=== PATIENT | female | born 1975 | race Caucasian/White ===

== ENCOUNTER → 2020-04-02 08:35 | Outpatient (CLI) | payer BC, SELFPAY ==
--- NOTE | ~2020-04-02 | MR_ITS ---
EXAMINATION: MR cervical spine wo con DATE: 04/02/2020 09:41 INDICATION: Cervical radiculopathy. TECHNIQUE: Magnetic resonance imaging (MRI) of the cervical spine was performed without intravenous c ontrast. Sequences included sagittal T2-weighted FSE, sagittal STIR FSE, sagittal T1-weighted FSE, ax ial MERGE, and axial T2-weighted FSE. COMPARISON: None FINDINGS: There is 2 mm retrolisthesis of C5 on C6. There is kyphosis of cervical spine. Vertebral jazlyn dy heights are normal. There is severely decreased disc height at C5-C6 with endplate remodeling. The spinal cord signal intensity is normal. The following disc levels are specifically discussed: C2-C3: The disc does not extend beyond the endplate margin. There is no uncovertebral joint osteoarth ritis. There is mild bilateral facet joint osteoarthritis. There is no neural foraminal stenosis. The re is no central canal stenosis. C3-C4: The disc does not extend beyond the endplate margin. There is mild bilateral uncovertebral j luis nt osteoarthritis. There is moderate right and mild left facet joint osteoarthritis. There is no neur al foraminal stenosis. There is no central canal stenosis. C4-C5: The disc does not extend beyond the endplate margin. There is mild left uncovertebral joint os teoarthritis. There is moderate left facet joint osteoarthritis. There is no neural foraminal stenosi s. There is no central canal stenosis. C5-C6: The disc is bulging and has an annular fissure. There is severe bilateral uncovertebral joint osteoarthritis. There is no facet joint osteoarthritis. There is mild bilateral neural foraminal sten osis. There is mild central canal stenosis. C6-C7: The disc does not extend beyond the endplate margin. There is no uncovertebral joint osteoarth ritis. There is no facet joint osteoarthritis. There is no neural foraminal stenosis. There is no lencho tral canal stenosis. C7-T1: The disc does not extend beyond the endplate margin. There is no uncovertebral joint osteoarth ritis. There is mild bilateral facet joint osteoarthritis. There is no neural foraminal stenosis. The re is no central canal stenosis. IMPRESSION: 1. Severe spondylosis at C5-C6. Reviewed, dictated and finalized at location A.
== END ==
PROVIDERS: PCP Internal Medicine; Visit Provider Chiropractor
DX: M54.13 Radiculopathy, cervicothoracic region (principal); M47.892 Other spondylosis, cervical region
CPT/HCPCS: 72141

== ENCOUNTER → 2020-09-30 14:57 | Outpatient (CLI) | payer BC, SELFPAY ==
--- NOTE | ~2020-09-30 | MM_ITS ---
EXAMINATION: MM screening bipin BI w alton HISTORY: Screening mammogram TECHNIQUE: Craniocaudal and mediolateral oblique 3-D tomosynthesis images were obtained and synthetic 2-D images were generated. Bilateral rotated lateral CC views. CAD analysis was submitted and interp reted. COMPARISON: No prior mammogram is available for comparison at this institution. BREAST PARENCHYMAL COMPOSITION: The breasts are heterogeneously dense, which may obscure small masses . FINDINGS: There is no evidence of suspicious mass, calcification, or architectural distortion to sugg est malignancy in either breast. There has been no suspicious interval change. IMPRESSION: 1. No mammographic evidence of malignancy. 2. Recommend routine screening mammography in one year. BI-RADS Category 1: Negative Reviewed, dictated and finalized at location A.
== END ==
PROVIDERS: Visit Provider Nurse Practitioner Obstetrics & Gynecology
DX: Z12.31 Encounter for screening mammogram for malignant neoplasm of breast (principal)
CPT/HCPCS: 77063; 77067

== ENCOUNTER → 2021-04-25 08:16 | Outpatient (CLI) | payer BC, SELFPAY ==
--- NOTE | ~2021-04-25 | CT_ITS ---
EXAMINATION: CT soft tissue neck w con DATE: 04/25/2021 08:51 INDICATION: Right neck lump with pain. TECHNIQUE: Computed tomography (CT) of the neck was performed with 75 mL Omnipaque-350 intravenous co ntrast. Automated exposure control and iterative reconstruction technique were employed. The dose-courtney gth product was 304.14 mGy-cm. COMPARISON: Cervical spine MRI 04/02/2020 FINDINGS: There is mild scarring at the lung apices. A skin marker overlies the right sternocleidomas toid muscle. There is no abnormal mass in this area. There are no pathologically enlarged lymph nodes . There is no significant stenosis of the vertebral arteries. The cervical carotid arteries are elisa l. The paranasal sinuses are clear. The mastoid air cells are normal. There is severe degenerative di sc disease at C5-C6. IMPRESSION: 1. No abnormal mass or lymphadenopathy. Reviewed, dictated and finalized at location B. LOPER SUPPORT ENGINEER
== END ==
PROVIDERS: PCP Internal Medicine; Visit Provider Internal Medicine
DX: M79.89 Other specified soft tissue disorders (principal)
CPT/HCPCS: 70491; Q9967

== ENCOUNTER → 2021-11-24 07:51 | Outpatient (CLI) | payer BC, SELFPAY ==
--- NOTE | ~2021-11-24 | US_ITS ---
US right upper quadrant DATE: 11/24/2021 08:23 INDICATION: Epigastric abdominal pain for 2 weeks. Reflux, indigestion. Cramping and bloating. TECHNIQUE: Real-time imaging and Doppler analysis with attenuation of liver, pancreas, gallbladder COMPARISON: None FINDINGS: No hepatic or pancreatic space-occupying mass lesion is detected. Normal hepatopedal portal venous flow direction. No gallbladder wall thickening or gallstones. Negative sonographic Joy's s ign. The common bile duct measures 3 mm, normal. IMPRESSION: Normal examination Reviewed, dictated and finalized at Location A. Reviewed, dictated and finalized at location A. IMPRESSION: Normal examination
== END ==
PROVIDERS: PCP Registered Nurse; Visit Provider Registered Nurse
DX: R10.13 Epigastric pain (principal)
CPT/HCPCS: 76705

== ENCOUNTER → 2021-11-24 07:52 | Outpatient (CLI) | payer BC, SELFPAY ==
--- NOTE | ~2021-11-24 | XR_ITS ---
XR shoulder RT min 2V DATE: 11/24/2021 08:23 INDICATION: Right shoulder pain. Osteoarthritis. TECHNIQUE: 4 views COMPARISON: None FINDINGS: No fracture or dislocation, periosteal reaction or bone destruction or abnormal soft tissue calcification. Normal alignment and preservation of joint spaces at the acromioclavicular and glenoh umeral joints. IMPRESSION: Negative Reviewed, dictated and finalized at location A. IMPRESSION: Negative
== END ==
PROVIDERS: PCP Registered Nurse
DX: M19.011 Primary osteoarthritis, right shoulder (principal)
CPT/HCPCS: 73030

== ENCOUNTER → 2022-02-11 07:50 | Outpatient (CLI) | payer BC, SELFPAY ==
--- NOTE | ~2022-02-11 | MM_ITS ---
EXAMINATION: MM screening bipin BI w alton HISTORY: Screening mammogram TECHNIQUE: Craniocaudal and mediolateral oblique 3-D tomosynthesis images were obtained and synthetic 2-D images were generated. CAD analysis was submitted and interpreted. COMPARISON: 09/30/2020, 01/14/2018 bilateral screening mammogram examinations BREAST PARENCHYMAL COMPOSITION: The breasts are heterogeneously dense, which may obscure small masses ................................. FINDINGS: There is no evidence of suspicious mass, calcification, or architectural distortion to sugg est malignancy in either breast. There has been no suspicious interval change. IMPRESSION: 1. No mammographic evidence of malignancy. 2. Recommend routine screening mammography in one year. BI-RADS Category 1: Negative Reviewed, dictated and finalized at location A.
== END ==
PROVIDERS: PCP Internal Medicine; Visit Provider Nurse Practitioner Obstetrics & Gynecology
DX: Z12.31 Encounter for screening mammogram for malignant neoplasm of breast (principal)
CPT/HCPCS: 77063; 77067

== ENCOUNTER 2022-07-14 07:30 | Outpatient (CLI) | payer BC, SELFPAY ==
--- NOTE | ~2022-07-14 | XR_ITS ---
EXAMINATION: XR knee RT 2V DATE: 07/14/2022 08:34 INDICATION: Multiple joint pain. TECHNIQUE: 2 views of right knee standing were obtained. COMPARISON: None. FINDINGS: Bone alignment is normal. No fracture. Joint spaces are well maintained. There is no knee j oint effusion. IMPRESSION: 1. Normal right knee. Reviewed, dictated and finalized at location A. IMEDIA AUTHORING SPECIALIST IMPRESSION: 1. Normal right knee.
--- NOTE | ~2022-07-14 | XR_ITS ---
EXAMINATION: XR hand LT 2V DATE: 07/14/2022 08:33 INDICATION: Multiple joint pain. TECHNIQUE: 2 views of left hand were obtained. COMPARISON: None. FINDINGS: Bone alignment is normal. No fracture. Joint spaces are well maintained. IMPRESSION: 1. Normal left hand. Reviewed, dictated and finalized at location A. HAUL CHAIN FEEDER IMPRESSION: 1. Normal left hand.
--- NOTE | ~2022-07-14 | XR_ITS ---
EXAMINATION: XR hip LT min 2V DATE: 07/14/2022 08:33 INDICATION: Multiple joint pain. TECHNIQUE: 2 views of left hip were obtained. COMPARISON: Pelvis and hip radiographs 12/05/2013 FINDINGS: Bone alignment is normal. No fracture. Left hip joint space is normal. There is an intraute rine device in expected position. IMPRESSION: 1. Normal left hip. Reviewed, dictated and finalized at location A. S BREAKER IMPRESSION: 1. Normal left hip.
--- NOTE | ~2022-07-14 | XR_ITS ---
EXAMINATION: XR foot LT 2V INDICATION: Multiple joint pain TECHNIQUE: Two views of the left foot are obtained. COMPARISON: None available FINDINGS: No fracture, dislocation, or subluxation. There is mild osteoarthritis of multiple interpha langeal joints. IMPRESSION: 1. No acute osseous abnormality. Reviewed, dictated and finalized at location B. H DESIGNER
--- NOTE | ~2022-07-14 | XR_ITS ---
EXAMINATION: XR ankle RT 2V INDICATION: Multiple joint pain TECHNIQUE: Two views of the right ankle are obtained. COMPARISON: None available FINDINGS: No fracture, dislocation, or subluxation. The bones, soft tissues, and joint spaces are nor mal. IMPRESSION: 1. No acute osseous abnormality. Reviewed, dictated and finalized at location B. A DEVELOPER
--- NOTE | ~2022-07-14 | XR_ITS ---
EXAMINATION: XR knee LT 2V DATE: 07/14/2022 08:34 INDICATION: Multiple joint pain. TECHNIQUE: 2 views of left knee standing were obtained. COMPARISON: None. FINDINGS: Bone alignment is normal. No fracture. Joint spaces are well maintained. There is no knee j oint effusion. IMPRESSION: 1. Normal left knee. Reviewed, dictated and finalized at location A. TRONIC SECURITY SPECIALIST IMPRESSION: 1. Normal left knee.
--- NOTE | ~2022-07-14 | XR_ITS ---
EXAMINATION: XR wrist RT 2V DATE: 07/14/2022 08:34 INDICATION: Multiple joint pain. TECHNIQUE: 2 views of right wrist were obtained. COMPARISON: None. FINDINGS: Bone alignment is normal. No fracture. There is mild osteoarthritis of first carpometacarpa l joint. IMPRESSION: 1. Mild osteoarthritis of first carpometacarpal joint. Reviewed, dictated and finalized at location A. RENCE SERVICES HEAD
--- NOTE | ~2022-07-14 | XR_ITS ---
EXAMINATION: XR hip RT min 2V DATE: 07/14/2022 08:33 INDICATION: Multiple joint pain. TECHNIQUE: 2 views of right hip were obtained. COMPARISON: Pelvis and hip radiographs 12/05/2013 FINDINGS: Bone alignment is normal. No fracture. Right hip joint space is normal. There is an intraut erine device in expected position. IMPRESSION: 1. Normal right hip. Reviewed, dictated and finalized at location A. L POURER IMPRESSION: 1. Normal right hip.
--- NOTE | ~2022-07-14 | XR_ITS ---
EXAMINATION: XR shoulder LT min 2V DATE: 07/14/2022 08:33 INDICATION: Multiple joint pain. TECHNIQUE: 4 views of left shoulder were obtained. COMPARISON: None. FINDINGS: Bone alignment is normal. No fracture. Joint spaces are well maintained. IMPRESSION: 1. Normal left shoulder. Reviewed, dictated and finalized at location A. SPORT ANALYST IMPRESSION: 1. Normal left shoulder.
--- NOTE | ~2022-07-14 | XR_ITS ---
EXAMINATION: XR wrist LT 2V DATE: 07/14/2022 08:34 INDICATION: Multiple joint pain. TECHNIQUE: 2 views of left wrist were obtained. COMPARISON: None. FINDINGS: Bone alignment is normal. No fracture. Joint spaces are well maintained. IMPRESSION: 1. Normal left wrist. Reviewed, dictated and finalized at location A. M FITTER HELPER IMPRESSION: 1. Normal left wrist.
--- NOTE | ~2022-07-14 | XR_ITS ---
EXAMINATION: XR elbow LT 2V DATE: 07/14/2022 08:34 INDICATION: Multiple joint pain. TECHNIQUE: 2 views of left elbow were obtained. COMPARISON: None. FINDINGS: Bone alignment is normal. No fracture. Joint spaces are well maintained. There is no elbow joint effusion. IMPRESSION: 1. Normal left elbow. Reviewed, dictated and finalized at location A. CAR MAINTENANCE MECHANIC IMPRESSION: 1. Normal left elbow.
--- NOTE | ~2022-07-14 | XR_ITS ---
EXAMINATION: XR elbow RT 2V DATE: 07/14/2022 08:34 INDICATION: Multiple joint pain. TECHNIQUE: 2 views of right elbow were obtained. COMPARISON: None. FINDINGS: Bone alignment is normal. No fracture. Joint spaces are well maintained. There is no elbow joint effusion. IMPRESSION: 1. Normal right elbow. Reviewed, dictated and finalized at location A. STICS/SHIPPER IMPRESSION: 1. Normal right elbow.
--- NOTE | ~2022-07-14 | XR_ITS ---
EXAMINATION: XR ankle LT 2V DATE: 07/14/2022 08:34 INDICATION: Multiple joint pain TECHNIQUE: Two views of the left ankle are obtained. COMPARISON: None. FINDINGS: No fracture, dislocation, or subluxation. The bones, soft tissues, and joint spaces are nor mal. IMPRESSION: 1. No acute osseous abnormality. Reviewed, dictated and finalized at location B. METRIC TECH
--- NOTE | ~2022-07-14 | XR_ITS ---
EXAMINATION: XR hand RT 2V DATE: 07/14/2022 08:33 INDICATION: Multiple joint pain. TECHNIQUE: 2 views of right hand were obtained. COMPARISON: None. FINDINGS: Bone alignment is normal. No fracture. There is mild osteoarthritis of first carpometacarpa l joint and fourth proximal interphalangeal joint. IMPRESSION: 1. Mild polyarticular osteoarthritis. Reviewed, dictated and finalized at location A. EXPORT OPERATIONS AGENT
--- NOTE | ~2022-07-14 | XR_ITS ---
EXAMINATION: XR shoulder RT min 2V DATE: 07/14/2022 08:33 INDICATION: Multiple joint pain. TECHNIQUE: 4 views of right shoulder were obtained. COMPARISON: None. FINDINGS: Bone alignment is normal. No fracture. Joint spaces are well maintained. IMPRESSION: 1. Normal right shoulder. Reviewed, dictated and finalized at location A. KER DRIVER IMPRESSION: 1. Normal right shoulder.
--- NOTE | ~2022-07-14 | XR_ITS ---
EXAMINATION: XR foot RT 2V INDICATION: Multiple joint pain TECHNIQUE: Two views of the right foot are obtained. COMPARISON: None available FINDINGS: No fracture, dislocation, or subluxation. There is mild osteoarthritis of multiple interpha langeal joints. IMPRESSION: 1. No acute osseous abnormality. Reviewed, dictated and finalized at location B. N SAW DRIVER
== END 2022-07-14 07:31 ==
LOC: MICIMG 07:33
PROVIDERS: PCP Internal Medicine; Visit Provider Internal Medicine Rheumatology
DX: M25.50 Pain in unspecified joint (principal); M19.041 Primary osteoarthritis, right hand; M19.031 Primary osteoarthritis, right wrist
CPT/HCPCS: 73030; 73070; 73100; 73120; 73502; 73560; 73600; 73620

== ENCOUNTER → 2022-09-14 07:04 | Outpatient (CLI) | payer BC, SELFPAY ==
--- NOTE | ~2022-09-14 | MR_ITS ---
EXAMINATION: MR brain/brain stem wo con DATE: 09/14/2022 08:13 INDICATION: Headaches. TECHNIQUE: Magnetic resonance imaging (MRI) of the brain and brainstem was performed without intraven ous contrast. COMPARISON: Neck CT 04/25/2021 FINDINGS: The cerebellar tonsils extend 6 mm inferior to the foramen magnum, consistent with Chiari I malformation. There is no intracranial hemorrhage, acute infarction, or abnormal intracranial mass l esion. The ventricles are normal in size. The orbits are normal. The paranasal sinuses are clear. The mastoid air cells are normal. IMPRESSION: 1. Chiari I malformation. Reviewed, dictated and finalized at location A. IMPRESSION: 1. Chiari I malformation.
--- NOTE | ~2022-09-14 | MR_ITS ---
MRI of the cervical spine Clinical History: Neck pain Technique: Axial T2-weighted and gradient images, and sagittal T1-weighted, T2-weighted, and STIR bharti ges were acquired. COMPARISON: 04/02/2020 Findings: There is no fracture or cervical spine. Minimal grade 1 retrolisthesis of C5 over C6 presen t. There is degenerative disc narrowing at C5-C6. No suspicious bone marrow signal abnormality seen. At C2-C3, C3-C4, and C4-C5, there is no disc bulge or herniation. No spinal canal stenosis, cord comp ression, or neural foraminal narrowing at these levels. At C5-C6, there is minimal disc bulge. No spinal canal stenosis, cord compression, or neural foramina l narrowing. At C6-C7, there is no disc bulge or herniation. No spinal canal stenosis, cord compression, or neural foraminal narrowing. No abnormal signal seen in the spinal cord. Paravertebral soft tissues are unremarkable. Impression: Minimal grade 1 retrolisthesis of C5 over C6. Minimal degenerative changes at the C5-C6 level. Reviewed, dictated and finalized at location M. Impression: Minimal grade 1 retrolisthesis of C5 over C6. Minimal degenerative changes at t he C5-C6 level.
--- NOTE | ~2022-09-14 | MR_ITS ---
EXAMINATION: MR lumbar spine wo con DATE: 09/14/2022 08:14 INDICATION: Low back pain. TECHNIQUE: Magnetic resonance imaging (MRI) of the lumbar spine was performed without intravenous con trast. Sequences included sagittal T2-weighted FSE, sagittal T2-weighted FS FSE, sagittal T1-weighted FSE, and axial T2-weighted FSE. COMPARISON: None FINDINGS: There is 10 degrees dextroscoliosis of thoracolumbar spine. There is mild chronic anterior wedging of T11 and T12 vertebral bodies. There is mildly decreased disc height at L4-L5 and severely decreased disc height at L5-S1 with endplate remodeling. The distal spinal cord signal intensity is n ormal. The conus medullaris is at L1-L2. The following disc levels are specifically discussed: L1-L2: The disc does not extend beyond the endplate margin. There is mild bilateral facet joint osteo arthritis. There is no neural foraminal stenosis. There is no central canal stenosis. L2-L3: The disc does not extend beyond the endplate margin. There is mild bilateral facet joint osteo arthritis. There is no neural foraminal stenosis. There is no central canal stenosis. L3-L4: The disc does not extend beyond the endplate margin. There is moderate right and mild left fac et joint osteoarthritis. There is no neural foraminal stenosis. There is no central canal stenosis. L4-L5: The disc is bulging and has an annular fissure. There is mild bilateral facet joint osteoarthr itis. There is mild bilateral neural foraminal stenosis. There is mild central canal stenosis. L5-S1: The disc is bulging with superimposed left central extrusion. There is moderate bilateral face t joint osteoarthritis. There is mild bilateral neural foraminal stenosis. There is mild central rosalio l stenosis. IMPRESSION: 1. Severe lower lumbar spondylosis. Reviewed, dictated and finalized at location A.
== END ==
PROVIDERS: PCP Internal Medicine; Visit Provider Internal Medicine Rheumatology
DX: M47.816 Spondylosis without myelopathy or radiculopathy, lumbar region (principal); G43.909 Migraine, unspecified, not intractable, without status migrainosus; G93.5 Compression of brain; M54.2 Cervicalgia
CPT/HCPCS: 70551; 72141; 72148

== ENCOUNTER → 2023-01-02 07:49 | Outpatient (CLI) | payer BC, SELFPAY ==
--- NOTE | ~2023-01-02 | US_ITS ---
Abdominal Sonogram: Real-time sonographic imaging of the abdomen was performed. Clinical History: Abdominal pain Findings: The liver appears normal with no evidence of mass lesion or bile duct dilatation. Main por rolando vein demonstrates normal direction of flow. The spleen is normal in size without evidence of foca l lesion. The gallbladder is well distended, and appears normal with no evidence of gallstone or wal l thickening. The common bile duct measures 2 mm. The visualized pancreas, aorta, and IVC are unrema rkable. The right kidney measures 10.1 cm in length and the left kidney measures 9.6 cm. There is n o hydronephrosis or renal calculus. Impression: Unremarkable abdominal ultrasound. Reviewed, dictated and finalized at location . Impression: Unremarkable abdominal ultrasound.
== END ==
PROVIDERS: PCP Internal Medicine; Referring Provider Internal Medicine Gastroenterology; Visit Provider Internal Medicine Gastroenterology
DX: R10.13 Epigastric pain (principal)
CPT/HCPCS: 76700

== ENCOUNTER → 2023-05-24 07:20 | Outpatient (CLI) | payer BC, SELFPAY ==
--- NOTE | ~2023-05-24 | MM_ITS ---
EXAMINATION: MM screening bipin BI w alton HISTORY: Screening mammogram TECHNIQUE: Craniocaudal and mediolateral oblique 3-D tomosynthesis images were obtained and synthetic 2-D images were generated. CAD analysis was submitted and interpreted. COMPARISON: 02/11/2022, 09/30/2020, 01/14/2018 bilateral screening mammogram examinations BREAST PARENCHYMAL COMPOSITION: The breasts are heterogeneously dense, which may obscure small masses . FINDINGS: There is no evidence of suspicious mass, calcification, or architectural distortion to sugg est malignancy in either breast. There has been no suspicious interval change. IMPRESSION: 1. No mammographic evidence of malignancy. 2. Recommend routine screening mammography in one year. BI-RADS Category 1: Negative Reviewed, dictated and finalized at location A. CYTOGENETIC TECHNOLOGIST
== END ==
PROVIDERS: PCP Nurse Practitioner Obstetrics & Gynecology; Visit Provider Nurse Practitioner Obstetrics & Gynecology
DX: Z12.31 Encounter for screening mammogram for malignant neoplasm of breast (principal)
CPT/HCPCS: 77063; 77067

== ENCOUNTER 2024-08-20 13:20 | Outpatient (CLI) | payer BC, SELFPAY ==
--- NOTE | ~2024-08-20 | MM_ITS ---
EXAMINATION: MM screening bipin BI w alton HISTORY: Screening TECHNIQUE: Craniocaudal and mediolateral oblique 3-D tomosynthesis images were obtained and synthetic 2-D images were generated. CAD analysis was submitted and interpreted. COMPARISON: Comparison to multiple prior studies sequentially, with oldest reviewed study dated 01/14. BREAST PARENCHYMAL COMPOSITION: Dense: The breasts are extremely dense, which lowers the sensitivity of mammography. FINDINGS: There is no evidence of suspicious mass, calcification, or architectural distortion to sugg est malignancy in either breast. There has been no suspicious interval change. IMPRESSION: 1. No mammographic evidence of malignancy. 2. Recommend routine screening mammography in one year. BI-RADS Category 1: Negative Reviewed, dictated and finalized at location B.
== END 2024-08-20 13:21 | disposition home or self-care (01) ==
LOC: MICIMG 13:20
PROVIDERS: PCP Student in an Organized Health Care Education/Training Program; Visit Provider Student in an Organized Health Care Education/Training Program
DX: Z12.31 Encounter for screening mammogram for malignant neoplasm of breast (principal)
CPT/HCPCS: 77063; 77067